=== PATIENT | female | born 1975 | race Asian ===

== ENCOUNTER 2025-06-04 14:47 | Outpatient (CLI) | payer MEDICAID ==
[2025-06-04] MEDS ORDERED: ALBUTEROL SULF 2.5 MG/0.5ML(0.5%) NEB SOLN ONE (15:06)
== END 2025-06-04 17:00 | disposition home or self-care (01) ==
LOC: RT 14:47
PROVIDERS: ATTEND Internal Medicine Pulmonary Disease
DX: R06.02 Shortness of breath (principal)
CPT/HCPCS: 94060; 94727; 94729